=== PATIENT | female | born 1955 | race Native Hawaiian/Other Pacific Islander ===

== ENCOUNTER 2016-11-13 13:48 | Outpatient (CLI) | payer OTHER ==
[2016-11-13] MEDS ORDERED: OMEPRAZOLE20 M1 OR (15:58)
[2016-11-13] MEDS ORDERED: METO25TA4 OR (15:58)
[2016-11-13] MEDS ORDERED: WELLBUTRIN100 M1 PO (15:59)
[2016-11-13] MEDS ORDERED: DEXL60CA4 PO (15:59)
[2016-11-13] MEDS ORDERED: BENTYL10 MG PO (16:00)
[2016-11-13] MEDS ORDERED: COZAAR100 MG PO (16:01)
[2016-11-13] MEDS ORDERED: [UNRECOGNIZED DRUG - CODE] PO (16:02)
[2016-11-13] MEDS ORDERED: TAMOXIFEN20 MG OR (16:03)
[2016-11-13] MEDS ORDERED: LORA0.5T17 PO ×2 (16:04→16:07)
[2016-11-13] MEDS ORDERED: ZANAFLEX2 MG PO (16:05)
== END 2016-11-13 14:01 | disposition short-term general hospital (02) ==
LOC: AMB 13:48
DX: M25.511 Pain in right shoulder (principal); M79.601 Pain in right arm; W18.39XA Other fall on same level, initial encounter; Y92.098 Other place in other non-institutional residence as the place of occurrence of the external cause
CPT/HCPCS: A0425; A0427

== ENCOUNTER 2016-11-13 14:04 | Emergency (ER) | payer OTHER ==
[~2016-11-13] VITALS: Ht 152.4 cm; Wt 122.5 kg
[2016-11-13] MEDS ORDERED: OMEPRAZOLE20 M1 OR (15:58)
[2016-11-13] MEDS ORDERED: METO25TA4 OR (15:58)
[2016-11-13] MEDS ORDERED: WELLBUTRIN100 M1 PO (15:59)
[2016-11-13] MEDS ORDERED: DEXL60CA4 PO (15:59)
[2016-11-13] MEDS ORDERED: BENTYL10 MG PO (16:00)
[2016-11-13] MEDS ORDERED: COZAAR100 MG PO (16:01)
[2016-11-13] MEDS ORDERED: [UNRECOGNIZED DRUG - CODE] PO (16:02)
[2016-11-13] MEDS ORDERED: TAMOXIFEN20 MG OR (16:03)
[2016-11-13] MEDS ORDERED: LORA0.5T17 PO ×2 (16:04→16:07)
[2016-11-13] MEDS ORDERED: ZANAFLEX2 MG PO (16:05)
== END 2016-11-13 18:30 | disposition home or self-care (01) ==
LOC: ED 14:04
DX: S42.295A Other nondisplaced fracture of upper end of left humerus, initial encounter for closed fracture (principal); S42.294A Other nondisplaced fracture of upper end of right humerus, initial encounter for closed fracture; W01.0XXA Fall on same level from slipping, tripping and stumbling without subsequent striking against object, initial encounter; Y92.098 Other place in other non-institutional residence as the place of occurrence of the external cause
CPT/HCPCS: 96374; 96375; 96376; 99284; J2270; J2405